=== PATIENT | female | born 1970 | race African-American/Black ===

== ENCOUNTER → 2018-07-18 14:37 | Outpatient (CLI) | payer OTHER, SELFPAY ==
--- NOTE | 2018-07-18 14:44 | BI_ITS ---
MAMMOGRAPHY - BILATERAL SCREENING REASON FOR EXAM: Female, 47 years old. Routine annual screening examination. PERTINENT HISTORY: Non-contributory. TECHNIQUE: Digital bilateral breast nubia (3D mammographic acquisition) in the CC and MLO projections. 2-D mediolateral oblique (MLO) and craniocaudad (CC) views of both breasts were obtained. CAD: Full Field Digital Mammography with Computer Added Detection was performed. COMPARISON: Comparison is made with prior study dated July 14, 2017 and July 10, 2016. FINDINGS: Breast Composition: The breasts are almost entirely fatty. There are no dominant masses or suspicious calcifications. Stable 8 mm well-defined nodule in the anterior superior lateral portion of the left breast. Stable appearance of the bilateral axillary lymph nodes. No other significant abnormalities are identified. There has been no significant change since the prior study. BI/SCREENING MAMM (CAD), BILAT IMPRESSION: Stable bilateral screening mammogram. Yearly follow-up mammogram recommended. (A) ASSESSMENT CATEGORY: BIRADS Category 2: Benign. A letter regarding these results will be sent to the patient by the facility within 30 days. Approximately 10% of breast cancers are not detected by mammography. A normal mammogram should not delay biopsy of a clinically suspicious abnormality. [id number] Electronically Signed: Jeb Simon MD at 13:24 EDT Tel [phone], Service support ,
== END ==
PROVIDERS: Family Provider Family Medicine; PCP Family Medicine; Referring Provider Obstetrics & Gynecology; Visit Provider Obstetrics & Gynecology
DX: Z12.31 Encounter for screening mammogram for malignant neoplasm of breast (principal)
CPT/HCPCS: 77063; 77067

== ENCOUNTER → 2019-07-25 | Outpatient (CLI) | payer OTHER, SELFPAY ==
--- NOTE | 2019-07-25 13:10 | BI_ITS ---
MAMMOGRAPHY - BILATERAL SCREENING REASON FOR EXAM: Female, 48 years old. Routine annual screening examination. PERTINENT HISTORY: Non-contributory. TECHNIQUE: Digital bilateral breast man (3D mammographic acquisition) in the CC and MLO projections. 2-D mediolateral oblique (MLO) and craniocaudad (CC) views of both breasts were obtained. CAD: Full Field Digital Mammography with Computer Added Detection was performed. COMPARISON: Comparison is made with prior study dated July 18, 2018 and July 14, 2017. FINDINGS: Breast Composition: The breasts are almost entirely fatty. There are no dominant masses or suspicious calcifications. Stable 8 mm well-defined nodular density with focal calcification in the anterior superior lateral aspect of the left breast. Stable benign-appearing bilateral axillary lymph nodes. No other significant abnormalities are identified. There has been no significant change since the prior study. BI/SCREEN MAMM (CAD) W/MAN BILAT IMPRESSION: Stable bilateral screening mammogram. Yearly follow-up mammogram recommended. (A) ASSESSMENT CATEGORY: BIRADS Category 2: Benign. A letter regarding these results will be sent to the patient by the facility within 30 days. Approximately 10% of breast cancers are not detected by mammography. A normal mammogram should not delay biopsy of a clinically suspicious abnormality. [id number] Electronically Signed: Jeb Simon, at 14:23 EDT , Service support ,
== END | disposition home or self-care (01) ==
LOC: OPBI 13:08
PROVIDERS: Family Provider Family Medicine; PCP Family Medicine; Referring Provider Obstetrics & Gynecology; Visit Provider Obstetrics & Gynecology
DX: Z12.31 Encounter for screening mammogram for malignant neoplasm of breast (principal)
CPT/HCPCS: 77063; 77067

== ENCOUNTER 2019-12-23 16:50 | Emergency (ER) | payer OTHER, SELFPAY ==
[2019-12-23 16:51] VITALS: BP 199/99; PULSE 70; RESP 16; TEMP 36.4; O2SAT 100; BMI 41.3
--- NOTE | 2019-12-23 17:12 | RAD_ITS ---
STUDY: X-RAY - LEFT FOOT CLINICAL: Female, 49 years old. Left 5th digit injury tonight. TECHNIQUE: 3 view(s) of the foot. COMPARISON: None. FINDINGS: There is a plantar calcaneal spur. There are degenerative changes of the midfoot. Normal metatarsi. There is a bony density along the medial aspect of the tuft of the distal phalanx that may be secondary to a prior injury. Normal second through fifth metatarsophalangeal joints. There is a fracture through the distal diaphysis of the fifth proximal phalanx. No intra-articular involvement is visualized. There is overlying soft tissue swelling. There is a The soft tissue structures are unremarkable. RAD/Foot min 3 Views IMPRESSION: Fifth proximal phalanx fracture. Degenerative changes. Electronically Signed: Lexis Betancourt MD at 17:46 EDT Tel , Service support ,
--- NOTE | 2019-12-23 17:13 | ED.VIS.LOWEX ---
History of Present Illness Chief Complaint: Lower Extremity Injury Informant: Patient Occurred: Today Mechanism/Context: Injury Context: Sudden Onset - Accidentally caught her left small toe on the leg of her child's highchair as she was walking by it Timing: Continuous Quality of Pain: Aching Location: Left small toe Current Severity: Moderate Maximum Severity: Severe Worsened by: Walking, moving, palpation Relieved by: Leaving alone and remaining still Associated Symptoms: Negative for: Parasthesia, Weakness, Loss of Funtion Past Medical History - Allergies and Home Meds Allergies/Adverse Reactions: Allergies codeine Allergy (Verified 12/23/19 16:52) Hives shellfish derived Allergy (Verified 12/23/19 16:52) Hives Primary Care Physician: Klever Candelaria MD [Primary Care Provider] - Past Medical History: None Surgical History: no surgical history Lives: With Family Smoking Status: Never smoker Review of Systems General: Denies: Chills, Fever, Sweats Musculoskeletal: Reports: Extremity Pain. Denies: Swelling Skin: Denies: Rash, Wounds Neurological: Denies: Headache, Weakness, Numbness Physical Exam Vital Signs/Narrative: Vital Signs Temp Pulse Resp BP Pulse Ox 12/23/19 16:51 97.5 F L 70 16 199/99 H 100 Inital Vital Signs reviewed: Yes - Extremity Exam Left Foot: Deformity - Left fifth digit is mildly in a valgus deformity. Skin intact., Limited ROM - Due to pain, fifth toe only. The fifth toe is tender, the metatarsal and midfoot are not and the other toes are unaffected/nontender. General: Well nourished, Well developed, - - nad Skin: Normal color, No rash, No Trauma Neurological: Alert, Oriented x3, Cranial nerves II-XII grossly intact, Normal Strength, Normal Sensation Psychological: Normal affect, Normal Mood ED Disposition - Plan for ED Patient: Disposition: Home or Assisted Living Diagnosis: Closed fracture of proximal phalanx of toe of left foot Instructions: ED Fx Toe Closed Prescriptions: Hydrocodone Bitart/Apap 5-325 [[place] 5MG-325MG] 1 tab PO Q4H PRN PRN 2 Days #10 tab PRN Reason: Pain Prescription Printed Referrals: Klever Candelaria MD [Primary Care Provider] - Baylee Patino DO [STAFF PHYSICIAN] - 10-14 Days if not better
== END 2019-12-23 18:21 | disposition home or self-care (01) ==
PROVIDERS: Emergency Provider Emergency Medicine; PCP Family Medicine
DX: S92.512A Displaced fracture of proximal phalanx of left lesser toe(s), initial encounter for closed fracture (principal); W22.03XA Walked into furniture, initial encounter; Y93.9 Activity, unspecified; Y92.9 Unspecified place or not applicable; Y99.9 Unspecified external cause status
CPT/HCPCS: 73630; 99283

== ENCOUNTER 2020-12-06 20:26 | Emergency (ER) | payer OTHER, SELFPAY ==
[2020-12-06 20:28] VITALS: BP 180/108; PULSE 75; RESP 16; TEMP 36.4; O2SAT 97; BMI 39.4
--- NOTE | 2020-12-06 20:54 | ED.VIS.GEN ---
History of Present Illness Chief Complaint: Cold Sx Informant: Patient Onset: Weeks - Onset 2 weeks ago Context: Sudden Onset Timing: Continuous Quality: Upper respiratory symptoms, runny nose, cough, aches etc. Location: Upper respiratory Current Severity: Mild Maximum Severity: Moderate Worsened by: Nothing specific Relieved by: Nothing Associated Symptoms: Upper respiratory symptoms Narrative: Patient is a 50-year-old woman who presents with respiratory symptoms started 2 weeks ago. She reports headache, nasal congestion, rhinorrhea, cough, shortness of breath, myalgias and subjective fever. She has younger children at home that are all ill. She was seen at urgent care. She had a negative Covid and a negative influenza swab 2 weeks ago. She was not placed on antibiotics. She presents today because she has gotten no better. She denies double vision, blurred vision or photophobia. Denies neck pain or neck stiffness. She denies nausea, vomiting diarrhea. She denies dysuria, frequency, urgency or hematuria. She denies rash. Prior similar symptoms: Yes Recent Illness/Hospitalization: Yes - Past Medical History (1) History of hypertension Status: Acute (2) History of gastroesophageal reflux (GERD) Status: Acute Past Medical History - Allergies and Home Meds Allergies/Adverse Reactions: Allergies codeine Allergy (Verified 12/06/20 20:28) Hives shellfish derived Allergy (Verified 12/06/20 20:28) Hives Primary Care Physician: Klever Candelaria MD [Primary Care Provider] - Surgical History: no surgical history Lives: With Family Smoking Status: Never smoker Alcohol: None Drugs: None Review of Systems General: Reports: Fever, Malaise, Subjective. Denies: Chills, Sweats, Weight loss Eyes: Denies: Visual changes - bilaterally, Blurred Vision - bilaterally ENT: Reports: Rhinorrhea. Denies: Bilateral ear pain, Sore throat Cardiovascular: Denies: Chest pain, Palpitations Respiratory: Reports: Cough. Denies: Dyspnea, Sputum, Dyspnea on exertion, Orthopnea, Paroxysmal nocturnal dyspnea Gastrointestinal: Denies: Abdominal pain, Nausea, Vomiting, Diarrhea, Melena, Hematochezia Genitourinary: Denies: Dysuria, Hematuria, Frequency Musculoskeletal: Reports: Myalgias, Arthralgias. Denies: Neck pain, Back pain, Swelling, Extremity Pain, -, - Skin: Denies: Rash, Wounds Neurological: Reports: Headache. Denies: Weakness Psych: Denies: Depression, Anxiety Endocrine: Denies: Polyuria, Polydipsia Hematologic: Denies: Easy bruising Physical Exam Vital Signs/Narrative: Vital Signs Temp Pulse Resp BP Pulse Ox 12/06/20 20:28 97.5 F L 75 16 180/108 H 97 Inital Vital Signs reviewed: Yes General: Well nourished, Well developed, Obese, No Acute Distress Head: Normocephalic, Atraumatic Eyes: Perrl, EOMI. Negative for: Pale conjunctiva, Scleral icterus ENT: Moist mucous membranes, No rhinorrhea Neck: Supple, Nontender, No lymphadenopathy, No JVD Cardiovascular: Regular rate, Regular rhythm, No murmurs, Normal S1, Normal S2 Respiratory: No distress, CTA bilaterally, Chest nontender Abdomen: Soft, Nontender, Nondistended, Normal bowel sounds Rectal: Deferred Back: Nontender Extremities: Nontender, No edema Skin: Normal color, No rash, No Trauma. Negative for: Cyanosis, Diaphoresis, Jaundice Neurological: Alert, Oriented x3, Cranial nerves II-XII grossly intact, Normal Strength, Normal Sensation Psychological: Normal affect, Normal Mood Diagnostic/Tx/Re-eval Chest X-Ray - ED: 1 View, Read by ED Physician, Unchanged, Normal, Heart, Lungs, Mediastinum, No Acute Disease, - - X-ray was interpreted by me at 2140. 12/06/20 21:10 Chest 1 View (Portable) [RAD] Stat Laboratory Results 12/06/20 12/06/20 21:00 21:00 WBC 7.1 RBC 4.26 Hgb 13.1 Hct 41.4 MCV 97.2 MCH 30.8 MCHC 31.6 L RDW Std Deviation 46.6 H RDW Coeff of Kristi 13.1 Plt Count 314 MPV 9.8 Immature Gran % (Auto) 0.100 Neut % (Auto) 28.8 L Lymph % (Auto) 55.6 H [place] % (Auto) 6.0 Eos % (Auto) 8.7 H Baso % (Auto) 0.8 Absolute Neuts (auto) 2.0 Absolute Lymphs (auto) 3.95 Nucleated RBC % 0 Sodium 141 Potassium 3.9 Chloride 107 Carbon Dioxide 29.0 Anion Gap 5 BUN 8 Creatinine 0.65 Estim Creat Clear Calc 87.43 Est GFR (MDRD) Af Amer 123 Est GFR (MDRD) Non-Af 102 BUN/Creatinine Ratio 12.3 Glucose 91 Calcium 8.9 Total Bilirubin 0.30 AST 16 ALT 20 Alkaline Phosphatase 85 Total Protein 7.4 Albumin 3.7 Globulin 3.7 Albumin/Globulin Ratio 1.0 Work is unremarkable. Covid test is pending and is a send out test. Treatment is symptomatic. - Medical Decision Making Presents with upper respiratory symptoms. Suspect viral illness. Covid test was ordered. Chest x-ray was ordered to rule out pneumonia. CBC was obtained to assess white count and H&H. Because patient had symptoms for [address] on doxycycline for atypical coverage. ED Disposition - Plan for ED Patient: Disposition: Home or Assisted Living Diagnosis: Upper respiratory infection with cough and congestion Instructions: ED Upper Resp Infec Abx Tx, Coronavirus Disease 2019 (COVID-19): Overview Prescriptions: Doxycycline 100 mg PO BID #14 cap Transmission Status: Pending to [facility] Referrals: Klever Candelaria MD [Primary Care Provider] - 3-5 Days if not improving Additional Instructions: You will receive your Covid test once the results are available and may take 24 to 48 hours. Because you have had symptoms for 2 weeks you were placed on antibiotic to cover for atypical organisms.
--- NOTE | 2020-12-06 21:10 | RAD_ITS ---
INDICATION: cough EXAMINATION/TECHNIQUE: X-RAY - XR Chest 1 View COMPARISON: 02/16/2012. FINDINGS: The lungs are clear. Bilateral hilar adenopathy. No pleural effusion or pneumothorax. The osseous structures are unremarkable. RAD/Chest 1 View (Portable) IMPRESSION: Bilateral hilar adenopathy. No other acute findings. Electronically Signed: Yonatan Carter MD at 21:38 EST Tel , Service support ,
[2020-12-06 21:24] VITALS: BP 183/104; PULSE 65; RESP 20; O2SAT 99
[2020-12-06 21:25] LABS: Absolute Lymphocyte Count 3.95 X10^3/uL (0.83-4.51); Basophil# 0.06 X10^3/uL; Basophil% 0.8 % (0-1); Eosinophil# 0.62 X10^3/uL; Eosinophils% 8.7 % (0-5); Hematocrit 41.4 % (37-47); Hemoglobin 13.1 g/dL (12.0-15.0); Lymphocyte # 3.95 X10^3/ul (4.0); Lymphocyte % 55.6 % (19-41); Mean Corp Hgb Conc 31.6 g/dL (32-36); Mean Corpuscular Hgb 30.8 pg (27.0-32.0); Mean Corpuscular Volume 97.2 fL (81-99); Mean Platelet Vol. 9.8 fl (6.2-12.0); Monocyte# 0.43 X10^3/uL; NRBC Flagged by Analyzer 0 % (0-5); Neutrophil # 2.04 X10^3/uL (2.7-7.7); Neutrophil % 28.8 % (47-70); Platelet Count 314 K/mm3 (150-450); RBC Distribution Width CV 13.1 % (11.6-14.6); RBC Distribution Width SD 46.6 fl (35.1-43.9); Red Blood Count 4.26 M/mm3 (4.2-5.4); White Blood Count 7.1 K/mm3 (4.4-11.0)
[2020-12-06 21:28] VITALS: O2SAT 99
[2020-12-06 21:53] LABS: AST(SGOT) 16 U/L (15-37); Alanine Aminotransfer ALT/SGPT 20 U/L (13-56); Albumin, Serum 3.7 g/dL (3.2-5.0); Alkaline Phosphatase 85 U/L (45-117); Anion Gap 5 (5-15); BUN 8 mg/dL (7-18); BUN/Creat Ratio 12.3 RATIO (10-20); Calcium,Total 8.9 mg/dL (8.5-10.1); Chloride 107 mmol/L (98-107); Creatinine, Serum 0.65 mg/dL (0.55-1.02); EST Glomerular Filtration Rate 102 mL/min (>60); Est Glom Filt Rate - Afr Amer 123 mL/min (>60); Estimated Creatinine Clearance 87.43 ml/min; Globulin 3.7 g/dL (2.2-4.2); Glucose 91 mg/dL (74-106); Potassium 3.9 mmol/L (3.5-5.1); Protein, Total 7.4 g/dL (6.4-8.2); Sodium Level 141 mmol/L (136-145)
[2020-12-06 22:12] VITALS: BP 187/101
[2020-12-06] MEDS: Doxycycline 100 MG CAPSULE PO (22:13)
== END 2020-12-06 22:13 | disposition home or self-care (01) ==
PROVIDERS: Emergency Provider Emergency Medicine; PCP Family Medicine
DX: J06.9 Acute upper respiratory infection, unspecified (principal); Z20.822 Contact with and (suspected) exposure to COVID-19; I10 Essential (primary) hypertension; K21.9 Gastro-esophageal reflux disease without esophagitis; E66.9 Obesity, unspecified
CPT/HCPCS: 71045; 80053; 83605; 85025; 87040; 87635; 99285; A4216; U0002; U0003

== ENCOUNTER 2021-05-14 16:51 | Observation (INO) | payer OTHER, SELFPAY ==
[2021-05-14 16:51] VITALS: BP 190/105; PULSE 74; RESP 17; TEMP 37; O2SAT 100; BMI 43.4
--- NOTE | 2021-05-14 17:06 | CT_ITS ---
HISTORY: Tingling TECHNIQUE: Multiple axial images were obtained of the brain without intravenous contrast. A radiation dose optimization technique was used for this scan. IV Contrast dosage and agent: None. COMPARISON: None FINDINGS: # of images incl. paperwork: 230 PARANASAL SINUSES AND MASTOID AIR CELLS: Ethmoid and sphenoid sinus mucoperiosteal disease. INTRACRANIAL HEMORRHAGE: None. BRAIN PARENCHYMA: No CT evidence of acute territorial infarction. Lacunar infarction left basal ganglia. No intracranial masses. There is preservation of the ghosh/white matter interface. Posterior fossa structures are unremarkable. CSF SPACES: Appropriate for age. There is no hydrocephalus. MASS EFFECT: None. CALVARIUM: Intact. CT/Brain/Head without Contrast IMPRESSION: No definite acute intracranial findings. Acuity of the lacunar infarction is indeterminate. Individualized dose optimization techniques were used for this CT. at 1744 Reported and signed by: Steve Ulloa MD Electronically Signed: Steve Ulloa MD at 17:43 EDT Tel , Service support ,
--- NOTE | 2021-05-14 17:06 | EKG12_ITS ---
Test Reason : NEURO S/SX Blood Pressure : / mmHG Vent. Rate : 065 BPM Atrial Rate : 065 BPM P-R Int : 190 ms QRS Dur : 080 ms QT Int : 440 ms P-R-T Axes : 024 032 019 degrees QTc Int : 457 ms Normal sinus rhythm Normal ECG Confirmed by BE BOURNE, SHAHZAD ([id number]), managing editor BONI GARCÍA ([id number]) on 05/19/2021 9:23:58 AM Referred By: MARCELA Confirmed By:SHAHZAD LR MD
[2021-05-14 17:27] LABS: Absolute Lymphocyte Count 3.51 X10^3/uL (0.83-4.51); Absolute Neutrophil Count 2.1 X10^3/uL (2.0-7.7); Basophil# 0.05 X10^3/uL; Basophil% 0.8 % (0-1); Eosinophil# 0.48 X10^3/uL; Eosinophils% 7.4 % (0-5); Hematocrit 41.7 % (37-47); Hemoglobin 13.1 g/dL (12.0-15.0); Lymphocyte # 3.51 X10^3/ul (0.83-4.51); Lymphocyte % 54.4 % (19-41); Mean Corp Hgb Conc 31.4 g/dL (32-36); Mean Corpuscular Volume 95.4 fL (81-99); Mean Platelet Vol. 9.6 fl (6.2-12.0); Monocyte# 0.33 X10^3/uL; Monocyte% 5.1 % (0-10); NRBC Flagged by Analyzer 0 % (0-5); Neutrophil # 2.06 X10^3/uL (2.7-7.7); Platelet Count 320 K/mm3 (150-450); RBC Distribution Width CV 12.8 % (11.6-14.6); RBC Distribution Width SD 45.1 fl (35.1-43.9); Red Blood Count 4.37 M/mm3 (4.2-5.4); White Blood Count 6.5 K/mm3 (4.4-11.0)
[2021-05-14 17:43] LABS: AST(SGOT) 13 U/L (15-37); Alanine Aminotransfer ALT/SGPT 24 U/L (13-56); Albumin, Serum 3.7 g/dL (3.2-5.0); Alkaline Phosphatase 80 U/L (45-117); Anion Gap 3 (5-15); BUN 12 mg/dL (7-18); BUN/Creat Ratio 17.7 RATIO (10-20); Calcium,Total 8.8 mg/dL (8.5-10.1); Chloride 104 mmol/L (98-107); Creatinine, Serum 0.68 mg/dL (0.55-1.02); EST Glomerular Filtration Rate 97 mL/min (>60); Est Glom Filt Rate - Afr Amer 117 mL/min (>60); Estimated Creatinine Clearance 80.06 ml/min; Globulin 3.8 g/dL (2.2-4.2); Glucose 85 mg/dL (74-106); Potassium 3.9 mmol/L (3.5-5.1); Protein, Total 7.5 g/dL (6.4-8.2); Sodium Level 138 mmol/L (136-145); Troponin-I HS 33 pg/mL (3.0-54.0)
[2021-05-14 18:04] VITALS: BP 173/100; PULSE 67; RESP 18; O2SAT 97
[2021-05-14 18:25] LABS: Bacteria 0 SEEN /hpf (None Seen); Mucous, Urine 0 SEEN /hpf (<or=2+); Red Blood Cells-Urine 0 SEEN /hpf (0-5)
[2021-05-14 18:39] LABS: Color, Urine Yellow (Yellow); Glucose, Dipstick Normal (Normal); Ketone-Dipstick Negative (Negative); Leukocyte Esterase-Dipstick Negative /ul (Negative); Nitrite-Dipstick Negative (Negative); Occult Blood-Urine Negative /ul (Negative); Protein-Dipstick Negative (Negative); Urine Bilirubin Dipstick Negative (Negative); Urine Clarity Clear (Clear); Urine Urobilinogen Normal (Normal); Urine pH 6.5 (5.0 - 8.0)
--- NOTE | 2021-05-14 18:55 | EX.ED.DYSGE1 ---
HPI History of Present Illness Chief Complaint: Numb/Ting Informant: patient Onset/Context/Timing Onset: Today Context: Sudden Onset Timing: Continuous Quality: Prickling sensation Location: Right hand and right face Worsened by: Washing hands Relieved by: Nothing Narrative Narrative: Patient presents with numbness and tingling to the right side of her face and right hand that occurred today. Patient states she woke up with the symptoms at approximately 5 AM today. Patient states the have been persistent throughout the day. Patient states she went to bed last night approximately 10 PM and did not have any symptoms. Patient denies any weakness. Patient denies any difficulty swallowing or difficulty talking. Patient describes her sensation as a prickling sensation in her right hand and right face. Patient states nothing makes it better. Patient states it seemed to be worse whenever she washed her hands. [facility] Medical History Hyperlipemia Hypertension Iron deficiency Umbilical hernia without obstruction and without gangrene Home Medications atorvastatin 20 mg PO DAILY 12/06/20 [History Last Taken Unknown] estradiol 1 tab PO DAILY 12/06/20 [History Last Taken Unknown] hydrochlorothiazide 12.5 mg PO DAILY 05/14/21 [History Last Taken Unknown] lisinopril 40 mg PO DAILY 05/14/21 [History Last Taken Unknown] metoprolol tartrate 25 mg PO BID 05/14/21 [History Last Taken Unknown] omeprazole 20 mg PO DAILY 05/14/21 [History Last Taken Unknown] Allergy/AdvReac Type Severity Reaction Status Date / Time codeine Allergy Hives Verified 05/14/21 16:54 Surgical History History of hysterectomy Hx of appendectomy Social History Smoking Status: Never smoker ROS ROS ED Constitutional Constitutional ED: Denies chills or fever(s) Eyes Eyes: Denies blurry vision or change in vision ENT ENT ED: Denies rhinorrhea or sore throat Cardiovascular Cardiovascular: Denies chest pain or palpitations Respiratory/Chest Respiratory/Chest: Denies cough or dyspnea Gastrointestinal Gastrointestinal: Denies nausea or vomiting Genitourinary Genitourinary ED: Denies dysuria or hematuria Musculoskeletal Musculoskeletal: Denies back pain or neck pain Integumentary Denies abscess or rash Neurologic Neurologic: Reports paresthesias RUE (Right hand); Denies headache(s) or weakness Allergic/Immunologic Allergic/Immunologic ED: Denies mouth swelling or urticaria EXAM Physical Exam Const Vital Signs: 05/14/21 16:51 05/14/21 18:04 05/14/21 19:35 Temperature 98.6 F Temperature Source Oral Pulse Rate 74 67 66 Respiratory Rate 17 18 15 Blood Pressure 190/105 H 173/100 H 189/104 H Blood Pressure Mean 133 124 132 Pulse Ox 100 97 100 Oxygen Delivery Method Room Air Room Air Room Air Positive well nourished and well developed General Appearance ED: well developed HEENT Reports moist mucous membranes Neck supple and no JVD Resp normal respiratory effort and clear to auscultation bilaterally Cardio regular rate, regular rhythm and no murmurs GI normal to inspection, nondistended, normoactive bowel sounds and non-tender Palpation: soft Extremity normal to inspection General Extremety ED: Negative for edema or tenderness General Extremity: Negative for edema Neuro oriented x3, CN's II-XII intact bilaterally and no sensory deficits noted Sensorium / Orientation: alert Motor Exam: strength 5/5 throughout Psych mental status grossly normal Skin no rashes or lesions noted MDM MDM MDM Narrative Medical decision making narrative: NIH stroke scale is 0. EKG was obtained. On my interpretation, it showed a normal sinus rhythm with a rate of 65. FL interval, QRS interval, and QTc intervals were all normal. [place] was normal. There are no acute ST or T wave changes. CT scan of the brain was obtained. There is a lacunar infarct in the left basal ganglia of questionable acuity. CBC and comprehensive metabolic profile was within normal limits. Urinalysis was ordered and is normal. Patient states she is still having some subjective paresthesias on her right face and right hand. I recommended admission for further evaluation of the lacunar infarct. Patient was given a dose of labetalol for her blood pressure. Lab Data Attestation: I reviewed the patient's lab results. Labs: Laboratory Results - last 24 hr 05/14/21 05/14/21 05/14/21 17:15 17:15 18:15 WBC 6.5 RBC 4.37 Hgb 13.1 Hct 41.7 MCV 95.4 MCH 30.0 MCHC 31.4 L RDW Std Deviation 45.1 H RDW Coeff of Kristi 12.8 Plt Count 320 MPV 9.6 Immature Gran % (Auto) 0.300 Neut % (Auto) 32.0 L Lymph % (Auto) 54.4 H [place] % (Auto) 5.1 Eos % (Auto) 7.4 H Baso % (Auto) 0.8 Absolute Neuts (auto) 2.1 Absolute Lymphs (auto) 3.51 Nucleated RBC % 0 Sodium 138 Potassium 3.9 Chloride 104 Carbon Dioxide 31.0 Anion Gap 3 L BUN 12 Creatinine 0.68 Estim Creat Clear Calc 80.06 Est GFR (MDRD) Af Amer 117 Est GFR (MDRD) Non-Af 97 BUN/Creatinine Ratio 17.7 Glucose 85 Calcium 8.8 Total Bilirubin 0.30 AST 13 L ALT 24 Alkaline Phosphatase 80 Troponin I High Sens 33 Total Protein 7.5 Albumin 3.7 Globulin 3.8 Albumin/Globulin Ratio 1.0 Urine Color Yellow Urine Clarity Clear Urine pH 6.5 Ur Specific [place] 1.010 Urine Protein Negative Urine Glucose (UA) Normal Urine Ketones Negative Urine Occult Blood Negative Urine Nitrite Negative Urine Bilirubin Negative Urine Urobilinogen Normal Ur Leukocyte Esterase Negative Urine RBC 0 SEEN Urine WBC 0-5 SEEN Ur Squamous Epith Cells 5-10 SEEN Urine Bacteria 0 SEEN Urine Mucus 0 SEEN Radiography Diagnostic Testing: Radiology Impression Brain CT 05/14/21 17:06 IMPRESSION: No definite acute intracranial findings. Acuity of the lacunar infarction is indeterminate. Individualized dose optimization techniques were used for this CT. at 1744 Reported and signed by: Steve Ulloa MD Electronically Signed: Steve Ulloa MD at 17:43 EDT Tel , Service support , EKG Initial EKG: Attestation: I personally reviewed and interpreted this EKG as follows: Interpretation: Sinus Rhythm (65) and No Acute Injury Pattern Discharge Plan Triage Chief Complaint: Numb/Ting ED Provider: Nima Puga Dx/Rx/DC Orders Prescriptions: No Action atorvastatin 20 MG tablet 20 mg PO DAILY RF: 0 estradiol 1 MG tablet 1 tab PO DAILY RF: 0 hydrochlorothiazide 12.5 mg capsule 12.5 mg PO DAILY RF: 0 omeprazole 20 mg capsule,delayed release(DR/EC) 20 mg PO DAILY RF: 0 lisinopril 40 mg tablet 40 mg PO DAILY RF: 0 metoprolol tartrate 25 mg tablet 25 mg PO BID RF: 0 Primary Care Provider: Klever Candelaria
[2021-05-14 19:14] LABS: Squamous Epithelial Cells - UA 5-10 SEEN /hpf (5-10); White Blood Cells 0-5 SEEN /hpf (0-5)
[2021-05-14 19:35] VITALS: BP 189/104; PULSE 66; RESP 15; O2SAT 100
--- NOTE | 2021-05-14 20:06 | CT_ITS ---
HISTORY: Stroke TECHNIQUE: Routine carotid CT angiogram protocol was performed without and with IV contrast. In addition, images were obtained of the [place]. [place] criteria using the distal ICAs for comparison were used for evaluation of stenoses. 3D reconstructions were reviewed. A radiation dose optimization technique was used for this scan. IV Contrast dosage and agent: 100mL [id number] COMPARISON: Noncontrast head CT same date FINDINGS: --NECK: AORTIC ARCH AND BRANCHES: Unremarkable, cervical vessel origins patent. RIGHT CCA: No occlusion, significant stenosis or dissection. RIGHT ICA: No occlusion, significant stenosis or dissection. LEFT CCA: No occlusion, significant stenosis or dissection. LEFT ICA: No occlusion, significant stenosis or dissection. RIGHT VERTEBRAL ARTERY: No occlusion, significant stenosis or dissection. LEFT VERTEBRAL ARTERY: No occlusion, significant stenosis or dissection. NECK SOFT TISSUES: Unremarkable. LUNG APICES: Clear. BONES: No acute abnormality. --HEAD: --Anterior circulation: ICAs: No significant stenosis at the intracranial/visualized segments. ACAs: No significant stenosis at the visualized segments. Right A1 segment and absent. ACOM: Present. MCAs: No significant stenosis at the visualized segments. --Posterior circulation: supervisor wet end: No significant stenosis at the visualized segments. BASILAR ARTERY: No significant stenosis. VERTEBRAL ARTERIES: No significant stenosis at the intradural/visualized segments. No evidence of intracranial aneurysm or vascular malformation. CT/CTA Head AND Neck W/ Contrast IMPRESSION: No significant major vesselocclusive disease in the head or neck. Individualized dose optimization techniques were used for this CT. at 2120 Reported and signed by: Steve Ulloa MD Electronically Signed: Steve Ulloa MD at 21:19 EDT Tel , Service support ,
--- NOTE | 2021-05-14 20:10 | PCM.HP.STD ---
[facility] - General General Date of Admission: 05/14/21 Date of Service: 05/14/21 Chief Complaint: numbness HPI Narrative GASPER VARELA, is a 50 F with a significant history of hypertension and hyperlipidemia who presents at the emergency department with numbness of her right hand and her right face that has been persistent. Patient last known well was that last time she went to sleep which was about 10pm of the day before presentation. She woke up at about 5 AM on the day of presentation with above symptoms and the symptoms persisted. She denies any focal weakness, vision or speech changes. [facility] Medical History Hyperlipemia Hypertension Iron deficiency Umbilical hernia without obstruction and without gangrene no medical history Home Medications atorvastatin 20 mg PO DAILY 12/06/20 [History Last Taken Unknown] estradiol 1 tab PO DAILY 12/06/20 [History Last Taken Unknown] hydrochlorothiazide 12.5 mg PO DAILY 05/14/21 [History Last Taken Unknown] lisinopril 40 mg PO DAILY 05/14/21 [History Last Taken Unknown] metoprolol tartrate 25 mg PO BID 05/14/21 [History Last Taken Unknown] omeprazole 20 mg PO DAILY 05/14/21 [History Last Taken Unknown] Allergy/AdvReac Type Severity Reaction Status Date / Time codeine Allergy Hives Verified 05/14/21 16:54 Family History Other Diabetes Hypertension Surgical History History of hysterectomy Hx of appendectomy Social History (Updated 05/15/21 @ 00:44 by Mirian Iglesias) household members: spouse and children housing: house pets and animals: Yes (dog) current gender identity: female Smoking Status: Never smoker ROS ROS Narrative Constitutional: Denies anorexia and change in weight Eyes: Denies blurry vision, change in eye color, change in vision, discharge from eye(s), double vision, erythema, eye pain, loss of vision or other HEENT: Denies abnormal hearing, dysphagia, ear pain, epistaxis, headache(s), hearing loss, nasal congestion, nasal discharge, post nasal drip, sinus pressure, sore throat or other Cardiovascular: Denies chest pain. Denies dyspnea on exertion, orthopnea and paroxysmal nocturnal dyspnea Respiratory/Chest: Denies cough, excessive phlegm production, shortness of breath with exertion and wheezing Gastrointestinal: Denies abdominal pain, coffee ground emesis, constipation, diarrhea, dyspepsia, hematemesis, hematochezia, loose stools, melena, nausea, vomiting or other Genitourinary: Denies burning urination, difficulty urinating, dysuria, hematuria, nocturia, urinary frequency, urinary hesitancy, urinary incontinence, urinary urgency or other Musculoskeletal: Denies arthralgias, back pain, joint pain, joint stiffness, joint swelling, myalgias, neck pain or other Neurologic: Reports numbness. Denies abnormal gait, abnormal speech, confusion, disequilibrium, dizziness, focal weakness, headache(s), paresthesias, seizure-like activity, seizures, syncope, tingling, tremor(s) or other Psychiatric: Denies anxiety, depression, homicidal ideation, suicidal ideation or other Endocrinology: Denies change in body appearance, cold intolerance, excessive sweating, heat intolerance, polydipsia, polyuria or other Hematologic/Lymphatic: Denies anemia, easy bleeding, easy bruising, lymphadenopathy or other Integumentary: Denies ulcer on buttocks. Allergic/Immunologic: Denies rhinitis, hives, eczema, asthma or other Vital Signs Vital Signs Vital Signs: 05/14/21 16:51 05/14/21 18:04 05/14/21 19:35 Temperature 98.6 F Temperature Source Oral Pulse Rate 74 67 66 Respiratory Rate 17 18 15 Blood Pressure 190/105 H 173/100 H 189/104 H Blood Pressure Mean 133 124 132 Pulse Ox 100 97 100 Oxygen Delivery Method Room Air Room Air Room Air Weight Weight: 111.1 kg Body Mass Index (BMI) 43.4 Physical Exam Narrative Physical exam: General: Well-nourished, well-developed, no acute distress Head: Normocephalic, atraumatic, no tenderness Eyes: PERRLA, EOMI ENT, no trauma, moist mucous membranes, no rhinorrhea Neck: Nontender, full range of motion, no spinal tenderness, deformities, step-off CVS: Regular rate and rhythm Respiratory no acute distress, clear to auscultation bilaterally, chest wall nontender, no wheezing Abdomen: Soft, nontender, nondistended, normal bowel sounds, no masses : Deferred Back: Nontender, no CVA tenderness, no midline spinal tenderness, deformities, step-offs Extremities: Nontender full range of motion, no trauma Skin: Normal color, no trauma, abrasions Neuro: Alert, oriented, cranial nerves II through XII grossly intact. No dysmetria. Deep tendon reflexes not hyperreflexia throughout. Psychiatry: Normal mood. Normal affect. Not depressed. Not anxious. Results Lab / Micro Data Result Diagrams: 05/14/21 17:15 05/14/21 17:15 Labs: Laboratory Results - last 24 hr 05/14/21 17:15: WBC 6.5, RBC 4.37, Hgb 13.1, Hct 41.7, MCV 95.4, MCH 30.0, MCHC 31.4 L, RDW Std Deviation 45.1 H, RDW Coeff of Kristi 12.8, Plt Count 320, MPV 9.6, Immature Gran % (Auto) 0.300, Neut % (Auto) 32.0 L, Lymph % (Auto) 54.4 H, [place] % (Auto) 5.1, Eos % (Auto) 7.4 H, Baso % (Auto) 0.8, Absolute Neuts (auto) 2.1, Absolute Lymphs (auto) 3.51, Nucleated RBC % 0 05/14/21 17:15: Sodium 138, Potassium 3.9, Chloride 104, Carbon Dioxide 31.0, Anion Gap 3 L, BUN 12, Creatinine 0.68, Estim Creat Clear Calc 80.06, Est GFR (MDRD) Af Amer 117, Est GFR (MDRD) Non-Af 97, BUN/Creatinine Ratio 17.7, Glucose 85, Calcium 8.8, Total Bilirubin 0.30, AST 13 L, ALT 24, Alkaline Phosphatase 80, Troponin I High Sens 33, Total Protein 7.5, Albumin 3.7, Globulin 3.8, Albumin/Globulin Ratio 1.0 05/14/21 18:15: Urine Color Yellow, Urine Clarity Clear, Urine pH 6.5, Ur Specific [place] 1.010, Urine Protein Negative, Urine Glucose (UA) Normal, Urine Ketones Negative, Urine Occult Blood Negative, Urine Nitrite Negative, Urine Bilirubin Negative, Urine Urobilinogen Normal, Ur Leukocyte Esterase Negative, Urine RBC 0 SEEN, Urine WBC 0-5 SEEN, Ur Squamous Epith Cells 5-10 SEEN, Urine Bacteria 0 SEEN, Urine Mucus 0 SEEN Radiology Impression Brain CT 05/14/21 17:06 IMPRESSION: No definite acute intracranial findings. Acuity of the lacunar infarction is indeterminate. Individualized dose optimization techniques were used for this CT. at 1744 Reported and signed by: Steve Ulloa MD Electronically Signed: Steve Ulloa MD at 17:43 EDT Tel , Service support , Assessment & Plan Assessment/Plan (1) Acute CVA (cerebrovascular accident): PLAN: Acute CVA Serial NINDS NIH Scale was 0 CT of the head interpreted by radiology as lacunar infarct of the basal ganglia. Actual CT head was independently interpreted and I agree with radiologist interpretation. CTA head and neck ordered at the ED; follow. -Check Hba1c, Lipid level Physical therapy, occupational therapy and speech therapy to work with patient. N.p.o. until bedside swallow eval. Daily baby aspirin ordered. Escalate home dose of Lipitor. Lipid profile and A1c ordered. Permissive hypertension. Control blood pressure with labetalol for systolic blood pressure of more than 220 or diastolic blood pressure of more than 120. MRI of brain ordered Echocardiogram ordered. Hypertension Blood pressure is not within goal. Hold home blood pressure medication for permissive hypertension. Blood pressure management as in acute CVA. DVT prophylaxis SCD ordered. Charges/Coding Multi Select Codes Visit Charges Observation E&M Codin Initial observation care L3
[2021-05-14] MEDS: Labetalol (Prefilled) 20 MG/4 ML 10 MG IV (20:34)
[2021-05-14 22:17] VITALS: BP 186/95; PULSE 74; RESP 15; TEMP 36.6; O2SAT 99
[2021-05-15] VITALS (14 sets, daily range): BP systolic 155–195; BP diastolic 88–105; PULSE 61–85; RESP 16–22; TEMP 36.5–37.3; O2SAT 97–100; BMI 42.0
--- NOTE | 2021-05-15 00:40 | MRI_ITS ---
EXAM: MR HEAD WITHOUT INTRAVENOUS CONTRAST : 1970 CLINICAL INDICATION: CVA TECHNIQUE: Multiplanar and multisequence MR images of the brain were obtained without intravenous contrast. This report was created using [employer] report generation technology. COMPARISON: CT brain May 14, 2021 FINDINGS: BRAIN AND EXTRA-AXIAL SPACES: There is no abnormal diffusion weighted signal intensity to suggest an acute ischemic event. The left basal ganglion lacunar infarcts appear to be chronic. No intra- or extra-axial hemorrhage. No intracranial mass or mass effect. Posterior fossa structures are unremarkable. Ventricles are appropriate for age. No hydrocephalus. Basal cisterns are patent. SELLA: Unremarkable. Normal sella turcica, pituitary gland, infundibular stalk, optic chiasm and hypothalamus. AUDITORY SYSTEM: Unremarkable. The internal auditory canals are patent. BONES/JOINTS: Unremarkable. No discrete lytic or blastic abnormalities. SINUSES: Fluid noted within the right sphenoid sinus. Mucosal thickening noted within the paranasal sinuses. MASTOID AIR CELLS: Unremarkable as visualized. Clear. ORBITS: Unremarkable as visualized. Both globes, extraocular muscles, optic nerves and retrobulbar fat appear unremarkable. VASCULATURE: Unremarkable as visualized. Normal flow voids in the major intracranial circulation. MRI/Brain without Contrast IMPRESSION: 1. No evidence of acute intracranial abnormality. 2. Chronic lacunar infarcts of the left basal ganglia. 3. Paranasal sinusitis. at 1225 Reported and signed by: Cuate Roca MD Electronically Signed: Cuate Roca MD at 12:24 EDT Tel , Service support ,
--- NOTE | 2021-05-15 00:40 | ECHOD_ITS ---
Reason For Study: TIA/CVA Procedure This was a 2D Doppler, Color Flow transthoracic echocardiogram. Exam performed portable in patient room. Left Ventricle Normal left ventricle. The estimated ejection fraction is EF 45-50 %. Right Ventricle Normal right ventricle. Normal systolic function. Atria The left atrium is mildly enlarged. Normal right atrium. Bubble contrast study negative for right to left interatrial shunt. Intact atrial septum. Mitral Valve The mitral valve is structurally normal. No prolapse or stenosis seen. Mild (1+) mitral valve insufficiency. Tricuspid Valve Normal tricuspid valve. No tricuspid valve insufficiency. Aortic Valve Normal aortic valve. Pulmonic Valve The pulmonic valve is not well visualized. Great Vessels Normal aortic root. Pericardium/Pleural No pericardial effusion. Medication Performed a rapid injection of agitated mix of 9 cc saline and 1cc air to assess for atrial septal defect. MMode/2D Measurements & Calculations LVIDd: 5.4 cm IVSd: 0.92 cm Ao root diam: 3.5 cm LVIDs: 4.7 cm LVPWd: 0.98 cm RVDd: 3.0 cm FS: 13.7 % LAV(MOD-bp): 48.5 ml LVAd ap4: 34.3 cm2 LVAd ap2: 39.0 cm2 LAV(MOD-bp) Indexed: 23.3 ml/m2 LVLd ap4: 8.4 cm LVLd ap2: 9.1 cm LAV(MOD-sp2): 38.3 ml EDV(MOD-sp4): 116.5 ml EDV(MOD-sp2): 142.3 ml LAV(MOD-sp4): 55.4 ml EDV(sp4-el): 119.1 ml EDV(sp2-el): 142.4 ml LVAs ap4: 23.3 cm2 LVAs ap2: 23.2 cm2 LVLs ap4: 7.0 cm LVLs ap2: 7.2 cm ESV(MOD-sp4): 63.9 ml ESV(MOD-sp2): 60.9 ml ESV(sp4-el): 65.8 ml ESV(sp2-el): 63.7 ml EF(MOD-sp4): 45.2 % EF(MOD-sp2): 57.2 % EF(sp4-el): 44.8 % SV(MOD-sp4): 52.6 ml SV(MOD-sp2): 81.5 ml SV(sp4-el): 53.3 ml LA A4 area: 19.8 cm2 LA dimension(2D): 4.3 cm RA A4 area: 10.8 cm2 Time Measurements MV dec time: 0.32 sec Doppler Measurements & Calculations MV E max sha: 59.0 cm/sec Lat Peak E' Sha: 6.5 cm/sec Med Peak E' Sha: 5.0 cm/sec MV A max sha: 93.7 cm/sec E/E' lat: 9.1 E/E' med: 11.9 MV E/A: 0.63 Ao V2 max: 129.7 cm/sec LV V1 max: 82.5 cm/sec PA V2 max: 98.0 cm/sec Ao max P.7 mmHg LV V1 max P.7 mmHg TR max sha: 226.1 cm/sec TR max P.5 mmHg ECHO/Echo Complete Interpretation Summary The estimated ejection fraction is EF 45-50 %. Grade # I diastolic Dysfunction Mild MR Ordering Physician: Ethan Sr Referring Physician: CORY JAMES Performed By: Jolanta Hebert, RDCS, RVT
--- NOTE | 2021-05-15 02:19 | PCS.PANDOC ---
PANDEMIC DOCUMENTATION INITIATED: Date: 05/15/21 Time: 00:35
[2021-05-15 06:35] LABS: Cholesterol 201 mg/dL (200); High Density Lipoprotein 49 mg/dL; Triglycerides 110 mg/dL; Very Low Density Lipoprotein 22 mg/dL (5-40)
--- NOTE | 2021-05-15 07:07 | PCS.PANDOC ---
PANDEMIC DOCUMENTATION INITIATED: Date: 05/12/2021 Time: 190
[2021-05-15 08:09] LABS: Hemoglobin A1c 5.4 % (3.8-5.6)
[2021-05-15] MEDS: Estradiol 1 MG Tablet PO (08:22)
[2021-05-15] MEDS: Aspirin 81 MG TAB.CHEW PO (08:22)
[2021-05-15] MEDS: Pantoprazole Sodium 20 MG Tablet PO (08:22)
[2021-05-15] MEDS: Acetaminophen 325 MG Tablet 650 MG PO (08:22)
--- NOTE | 2021-05-15 11:29 | CASEMGMT ---
Pt completed PHQ-9 w/SW, pt scored a 1. No indications of depression based on PHQ-9 assessment at this time. DREA Kyle
--- NOTE | 2021-05-15 12:44 | CHAPLAIN ---
Type of Pastoral Visit _x__ Initial Visit ___ Follow-up Visit ___ On-call Visit ___ General Patient Visit ___ Spiritual Assessment ___ Family Conference ___ Bereavement ___ Rapid Response ___ Code Blue ___ Other (describe below) Pastoral Care Referral From _x__ Patient ___ Family ___ Nurse ___ Physician ___ Welder Assembler ___ Manager Retail Store ___ Other (describe below) Sacrament/Intervention _x__ Active listening ___ Anointing ___ Faith ___ Bereavement ___ Communion ___ Isabella exploration ___ ___ Life review _x__ Prayer ___ Reconciliation ___ Sacrament of Sick _x__ Supportive presence ___ Wedding ___ Other (describe below) Pastoral Comments patient is an acquaintance of this care navigator and was offered support; pt welcomed presence and prayer; spouse also present in room
--- NOTE | 2021-05-15 13:41 | TELEMED_ITS ---
[facility] has confirmed receipt of a request for visit. This document confirms receipt of the order initiating the consult. To find the results of the consultation, please view the patient's reports for the scanned Telemed Consult.
--- NOTE | 2021-05-15 16:56 | PCM.DC ---
Discharge Instructions Diet Discharge Diet: Low fat / Low cholesterol Activity Return to work on:: 05/19/21 Dressing / Incision Call your doctor if you observe: Numbness or Tingling (worsening. one-sided weakness. ) Follow Up Care Test Results: Test results from this visit will be discussed in further detail at your follow-up appointment, if applicable. Discharge Plan Admission Admit Date/Time: 05/14/21 20:10 Primary Reason for Your Visit: numbness Attending Provider: Nima Ramírez Primary Care Provider: Klever Candelaria Discharge Orders/Prescriptions Prescriptions: New atorvastatin 80 mg Tablet 80 mg PO QHS Qty: 30 RF: 0 aspirin 81 mg Tablet,Chewable 81 mg PO DAILY@0800 Qty: 0 RF: 0 carvedilol 6.25 mg tablet 6.25 mg PO BID Qty: 60 RF: 0 Continued estradiol 1 MG tablet 1 tab PO DAILY RF: 0 hydrochlorothiazide 12.5 mg capsule 12.5 mg PO DAILY RF: 0 lisinopril 40 mg tablet 40 mg PO DAILY RF: 0 Discontinued atorvastatin 20 MG tablet 20 mg PO DAILY RF: 0 metoprolol tartrate 25 mg tablet 25 mg PO BID RF: 0 No Action omeprazole 20 mg capsule,delayed release(DR/EC) 20 mg PO DAILY RF: 0 Referrals / Follow Up: Rubin Bose MD [STAFF PHYSICIAN] - Within 1 Month (cardiomyopathy) Roderick Otoole MD [STAFF PHYSICIAN] - Within 1 Month (lacunar infarct) Klever Candelaria MD [Primary Care Provider] - Within 1 Week Disposition Disposition (needs filled in before D/C Order can be placed): Home, Self Care
--- NOTE | 2021-05-15 17:01 | DS.PCM_ITS ---
Providers Date of Admission: 05/14/21 Primary Care Physician: Dr. Klever James MD Reason For Visit: CVA Diagnosis Discharge Diagnosis (1) Acute CVA (cerebrovascular accident): Status: Acute Code(s): I63.9 - Cerebral infarction, unspecified Medications at Discharge Home Medications estradiol 1 tab PO DAILY 12/06/20 hydrochlorothiazide 12.5 mg PO DAILY 05/14/21 lisinopril 40 mg PO DAILY 05/14/21 omeprazole 20 mg PO DAILY 05/14/21 aspirin 81 mg PO DAILY@0800 #0 tab 05/15/21 atorvastatin 80 mg PO QHS #30 tab 05/15/21 carvedilol 6.25 mg PO BID #60 tab 05/15/21 Hospital Course Operations None Procedures 2-D Echocardiogram Summary of Care Provided Minutes Spent on Discharge: 32 Hospital Course: 48-year-old female presents with numbness of her right hand and face. Began the day before. Still persist but no weakness noted. Patient had CAT scan that showed left basal ganglia lacunar infarct. MRI performed that showed chronic lacunar infarcts on the left basal ganglia. Echo performed showed an EF of 45 to 50% but no other acute process. Patient was evaluated by [facility] teleneurology who recommends intensive medical optimization with aspirin, high intensity statin. Patient will follow up with neurology as outpatient in regards to her overall recovery. In regards to the cardiomyopathy, patient is asymptomatic but did discuss the case with Dr. Soni who advised changing metoprolol tartrate over to carvedilol and to follow-up with cardiology as outpatient. No inpatient assessment was necessary at this time. Patient was apprised of all these information and that medication changes will be implemented. All questions were answered. Patient may return to work on the with no further restrictions. Physical Exam Const alert General Appearance: cooperative HEENT normocephalic and head/scalp atraumatic Eyes PERRL and EOMs intact bilaterally Neuro oriented x3, CN's II-XII intact bilaterally, moves all extremities, no focal motor deficits and no sensory deficits noted Sensorium / Orientation: awake and alert Motor Exam: strength 5/5 throughout Weight / BMI Weight Weight: 107.7 kg Body Mass Index (BMI) 42.0 ABG / Lab / Microbiology Data Result Diagrams: 05/14/21 17:15 05/14/21 17:15 Laboratory: Laboratory Results - last 24 hr 05/14/21 17:15: WBC 6.5, RBC 4.37, Hgb 13.1, Hct 41.7, MCV 95.4, MCH 30.0, MCHC 31.4 L, RDW Std Deviation 45.1 H, RDW Coeff of Kristi 12.8, Plt Count 320, MPV 9.6, Immature Gran % (Auto) 0.300, Neut % (Auto) 32.0 L, Lymph % (Auto) 54.4 H, [place] % (Auto) 5.1, Eos % (Auto) 7.4 H, Baso % (Auto) 0.8, Absolute Neuts (auto) 2.1, Absolute Lymphs (auto) 3.51, Nucleated RBC % 0 05/14/21 17:15: Sodium 138, Potassium 3.9, Chloride 104, Carbon Dioxide 31.0, Anion Gap 3 L, BUN 12, Creatinine 0.68, Estim Creat Clear Calc 80.06, Est GFR (MDRD) Af Amer 117, Est GFR (MDRD) Non-Af 97, BUN/Creatinine Ratio 17.7, Glucose 85, Calcium 8.8, Total Bilirubin 0.30, AST 13 L, ALT 24, Alkaline Phosphatase 80, Troponin I High Sens 33, Total Protein 7.5, Albumin 3.7, Globulin 3.8, Albumin/Globulin Ratio 1.0 05/14/21 18:15: Urine Color Yellow, Urine Clarity Clear, Urine pH 6.5, Ur Specific [place] 1.010, Urine Protein Negative, Urine Glucose (UA) Normal, Urine Ketones Negative, Urine Occult Blood Negative, Urine Nitrite Negative, Urine Bilirubin Negative, Urine Urobilinogen Normal, Ur Leukocyte Esterase Negative, Urine RBC 0 SEEN, Urine WBC 0-5 SEEN, Ur Squamous Epith Cells 5-10 SEEN, Urine Bacteria 0 SEEN, Urine Mucus 0 SEEN 05/15/21 05:24: Triglycerides 110, Cholesterol 201 H, LDL Cholesterol 130, VLDL Cholesterol 22, HDL Cholesterol 49 05/15/21 05:24: Hemoglobin A1c 5.4 Radiography Diagnostic Testing: Radiology Impression Brain CT 05/14/21 17:06 IMPRESSION: No definite acute intracranial findings. Acuity of the lacunar infarction is indeterminate. Individualized dose optimization techniques were used for this CT. at 1744 Reported and signed by: Steve Ulloa MD Electronically Signed: Steve Ulloa MD at 17:43 EDT Tel , Service support , Head/Neck CTA 05/14/21 20:06 IMPRESSION: No significant major vesselocclusive disease in the head or neck. Individualized dose optimization techniques were used for this CT. at 2120 Reported and signed by: Steve Ulloa MD Electronically Signed: Steve Ulloa MD at 21:19 EDT Tel , Service support , Brain MRI 05/15/21 00:40 IMPRESSION: 1. No evidence of acute intracranial abnormality. 2. Chronic lacunar infarcts of the left basal ganglia. 3. Paranasal sinusitis. at 1225 Reported and signed by: Cuate Roca MD Electronically Signed: Cuate Roca MD at 12:24 EDT Tel , Service support , Echocardiogram 05/15/21 00:40 Interpretation Summary The estimated ejection fraction is EF 45-50 %. Grade # I diastolic Dysfunction Mild MR Ordering Physician: Ethan Sr Referring Physician: KLEVER JAMES Performed By: Jolanta Hebert, RDCS, RVT D/C Instructions Discharge Diet: Low fat / Low cholesterol Return to work on: 05/19/21 Call your doctor if you observe: Numbness or Tingling (worsening. one-sided weakness. ) Meaningful Use Info Meaningful Use Diagnoses (Choose all that apply): Ischemic CVA CVA Therapy Assessed for PT,OT and/or ST?: Yes Ischemic Stroke Antithrombotic order at d/c?: Yes Dx of Atrial fib/flutter?: No Statins at discharge?: Yes Primary Dx Acute Ischemic CVA?: Yes IV tPA ordered during stay?: No Reason IV t-PA not ordered: Medical Contraindication Discharge Plan Admission Admit Date/Time: 05/14/21 20:10 Primary Reason for Your Visit: numbness Attending Provider: Nima Ramírez Primary Care Provider: Klever James Discharge Orders/Prescriptions Prescriptions: New atorvastatin 80 mg Tablet 80 mg PO QHS Qty: 30 RF: 0 aspirin 81 mg Tablet,Chewable 81 mg PO DAILY@0800 Qty: 0 RF: 0 carvedilol 6.25 mg tablet 6.25 mg PO BID Qty: 60 RF: 0 Continued estradiol 1 MG tablet 1 tab PO DAILY RF: 0 hydrochlorothiazide 12.5 mg capsule 12.5 mg PO DAILY RF: 0 lisinopril 40 mg tablet 40 mg PO DAILY RF: 0 Discontinued atorvastatin 20 MG tablet 20 mg PO DAILY RF: 0 metoprolol tartrate 25 mg tablet 25 mg PO BID RF: 0 No Action omeprazole 20 mg capsule,delayed release(DR/EC) 20 mg PO DAILY RF: 0 Referrals / Follow Up: Rubin Bose MD [STAFF PHYSICIAN] - Within 1 Month (cardiomyopathy) Roderick Otoole MD [STAFF PHYSICIAN] - Within 1 Month (lacunar infarct) Klever James MD [Primary Care Provider] - Within 1 Week Disposition Disposition (needs filled in before D/C Order can be placed): Home, Self Care Charges/Coding Visit Charges OBSV E&M: 08006 Observation care discharge
== END 2021-05-15 17:01 | disposition home or self-care (01) ==
LOC: ED 17:34 → PCU 21:02
PROVIDERS: Admitting Provider Hospitalist; Emergency Provider Emergency Medicine; PCP Family Medicine
DX: I63.81 Other cerebral infarction due to occlusion or stenosis of small artery (principal); R20.0 Anesthesia of skin; R20.2 Paresthesia of skin; E78.5 Hyperlipidemia, unspecified; I10 Essential (primary) hypertension; Z79.899 Other long term (current) drug therapy; R29.700 NIHSS score 0
CPT/HCPCS: 36415; 70450; 70496; 70498; 70551; 80053; 80061; 81001; 83036; 84484; 85025; 93005; 93306; 94762; 96374; 97161; 97166; 97802; 99218; 99285; Q9967; A4216; G0378

== ENCOUNTER 2022-03-08 17:40 | Emergency (ER) | payer OTHER, SELFPAY ==
[2022-03-08 17:41] VITALS: BP 159/95; PULSE 94; RESP 14; TEMP 36.6; O2SAT 98; BMI 38.0
--- NOTE | 2022-03-08 17:52 | ED.VIS.LOWEX ---
HPI History of Present Illness Chief Complaint: Lower Extremity Injury Informant: patient Occured/Mechanism Mechanism/Context: Yes blunt trauma Onset/Context/Timing Onset: Days Context: Sudden Onset Timing: Continuous Quality of Pain: Dull and Aching Current Severity: Moderate Maximum Severity: Moderate Narrative Narrative: 51-year-old female history of hypertension. She was coming down the steps running after her children on when her knee gave out and she fell on the steps injuring her right knee. No prior history of surgery to the knee. Denies hitting her head. No LOC. No hip or ankle pain. Denies other complaints. States she is able to walk on it but it is very uncomfortable. She took Tylenol several hours prior to arrival. Prior similar symptoms: No Recent Illness/Hospitalization: No PFSH PFSH Medical History Hyperlipemia Hypertension Iron deficiency Umbilical hernia without obstruction and without gangrene Home Medications estradiol 1 tab PO DAILY 12/06/20 [History Last Taken Unknown] hydrochlorothiazide 12.5 mg PO DAILY 05/14/21 [History Last Taken Unknown] lisinopril 40 mg PO DAILY 05/14/21 [History Last Taken Unknown] omeprazole 20 mg PO DAILY 05/14/21 [History Last Taken Unknown] aspirin 81 mg PO DAILY@0800 #0 tab 05/15/21 [Rx Last Taken Unknown] atorvastatin 80 mg PO QHS #30 tab 05/15/21 [Rx Last Taken Unknown] carvedilol 6.25 mg PO BID #60 tab 05/15/21 [Rx Last Taken Unknown] Allergy/AdvReac Type Severity Reaction Status Date / Time codeine Allergy Hives Verified 03/08/22 17:42 Family History Other Diabetes Hypertension Surgical History History of hysterectomy Hx of appendectomy Social History household members: spouse and children housing: house pets and animals: Yes (dog) Smoking Status: Never smoker ROS ROS ED Review of Systems ROS Unobtainable: Denies due to encephalopathy Constitutional Constitutional ED: Denies chills, fever(s) or subjective Eyes Eyes: Denies change in vision ENT ENT ED: Denies ear pain Cardiovascular Cardiovascular: Denies chest pain Respiratory/Chest Respiratory/Chest: Denies dyspnea Gastrointestinal Gastrointestinal: Denies abdominal pain Genitourinary Genitourinary ED: Denies dysuria Musculoskeletal Musculoskeletal: Denies myalgias Integumentary Denies rash Neurologic Neurologic: Denies headache(s) Psychiatric Psychiatric: Denies depression Endocrine Endocrinology: Denies polyuria Hematologic/Lymphatic Hematologic/Lymphatic: Denies easy bruising Allergic/Immunologic Allergic/Immunologic ED: Denies urticaria EXAM Physical Exam Narrative Exam Narrative: 51-year-old female no acute distress. Vital signs are stable and afebrile. H EENT exam unremarkable atraumatic nontender. C-spine nontender. Lungs are clear equal symmetrical bilaterally. Heart regular rhythm no murmur. Rate about 90. Chest nontender. Abdomen soft nontender. Back and spine nontender. Pelvic girdle intact. Moves all 4 extremities. Both upper and left lower extremity are nontender normal range of motion and strength. Right hip ankle and foot are nontender neurovascular intact. Dorsi plantarflexion is intact. Tenderness to the anterior right knee. Minimal swelling. No effusion. She is able to flex and extend the knee but flexion is somewhat limited. She can extend 180 degrees. She can lift her leg off the bed there is no signs of any quadriceps patellar tendon rupture. Neurologically she is awake and alert with no focal motor deficits. GCS of 15. Const Vital Signs: 03/08/22 17:41 Temperature 97.9 F Temperature Source Temporal Pulse Rate 94 Respiratory Rate 14 Blood Pressure 159/95 H Blood Pressure Mean 116 Pulse Ox 98 Oxygen Delivery Method Room Air Positive well nourished, well developed and obese; Negative for cachectic, contractures or unkempt General Appearance ED: well developed and NAD; Negative for unkempt, cachectic or contractures Nutritional Appearance: obese; Negative for cachectic HEENT Reports moist mucous membranes normocephalic and atraumatic; Negative for trauma or tenderness Eyes PERRL Neck full ROM and supple Thyroid: Negative for tender Chest Wall inspection of chest normal and palpation of chest normal Resp normal respiratory effort, no retractions and clear to auscultation bilaterally Auscultation: Negative for rales, rhonchi or wheezes Cardio regular rate, regular rhythm, S1 normal heart sound, S2 normal heart sound and no murmurs GI non-tender, non-distended and no masses Auscultation: normoactive bowel sounds Palpation: soft; Negative for tender or guarding Back/Spine no CVA tenderness General Back: Negative for CVA tenderness Lumbar Spine / Lower Back: Negative for lumbar spinal tenderness or straight leg raise negative bilaterally Extremity normal to inspection and full ROM Extremity Narrative: Except tenderness right knee. Limited flexion due to discomfort. Full extension. No deformity. ACL, PCL, MCL, LCL and extensor mechanism appear to be intact. General Extremety ED: Negative for cyanosis or edema General Extremity: Negative for cyanosis or edema Neuro oriented x3 and moves all extremities Sensorium / Orientation: alert, oriented to person, oriented to place and oriented to time; Negative for orientation impaired, confused, lethargic or stuporous Motor Exam: strength 5/5 throughout Psych mental status grossly normal Appearance: Negative for unkempt Mood & Affect: Negative for anxious Skin no wounds Lesions: no lesions Rashes: no rashes Trauma: Negative for abrasion or laceration MDM MDM MDM Narrative Medical decision making narrative: 51-year-old female fell on complaining of right knee pain. X-ray being obtained. Motrin for pain. Repeat exam at 6:42 PM unchanged. Discussed with patient x-ray results. Outpatient follow-up. She will be discharged home with crutches. 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 Motrin and Tylenol for pain. Ice and elevate. She and I went over limitations of plain x-rays and if this is not improving she is on follow-up with orthopedics and she knows they may have to get advanced imaging to rule out other injuries such as a meniscal tear if its not improving. Discharge Plan Triage Chief Complaint: Lower Extremity Injury ED Provider: Davonte Louise Dx/Rx/DC Orders Clinical Impression: Fall, Contusion of knee, Knee sprain Instructions: ED Knee Sprain Prescriptions: No Action estradiol 1 MG tablet 1 tab PO DAILY RF: 0 hydrochlorothiazide 12.5 mg capsule 12.5 mg PO DAILY RF: 0 omeprazole 20 mg capsule,delayed release(DR/EC) 20 mg PO DAILY RF: 0 lisinopril 40 mg tablet 40 mg PO DAILY RF: 0 atorvastatin 80 mg Tablet 80 mg PO QHS Qty: 30 RF: 0 aspirin 81 mg Tablet,Chewable 81 mg PO DAILY@0800 Qty: 0 RF: 0 carvedilol 6.25 mg tablet 6.25 mg PO BID Qty: 60 RF: 0 Primary Care Provider: Klever Candelaria Referrals: Zhang Denny MD [STAFF PHYSICIAN] - 1 Week if not improving Klever Candelaria MD [Primary Care Provider] - 1 Week if not improving Activity Restrictions/Additional Instructions: Ice and elevate your knee to decrease pain and swelling. Increase activity as tolerated. Use crutches initially until weightbearing is more tolerable Motrin for pain and swelling. Tylenol for pain. X-ray shows no broken bone or dislocation. As we discussed that does not rule out a meniscus, tendon or ligament injury. If this is not improving you need to follow-up with either your primary care physician or Dr. Zhang Denny of orthopedics for further evaluation and possible MRI if not improving. Disposition Disposition: Home, Self Care
[2022-03-08] MEDS: Ibuprofen 600 MG Tablet PO (17:59)
--- NOTE | 2022-03-08 18:03 | RAD_ITS ---
STUDY: X-RAY - RIGHT KNEE REASON FOR EXAM: Female, 51 years old. trauma TECHNIQUE: 4 view(s) of the knee. COMPARISON: None. FINDINGS: Normal visualized distal femur. Normal visualized proximal tibia and fibula. Normal proximal tibiofibular articulation. Narrowed medial femorotibial compartment. Normal lateral femorotibial compartment. Normal patellofemoral articulation. Spurring of the upper pole of the patella Mild chondrocalcinosis noted RAD/Knee 4 or More Views IMPRESSION: Degenerative osteoarthritic changes. No acute fracture. Electronically Signed: Amador Davis MD at 19:07 EDT ,
== END 2022-03-08 19:03 | disposition home or self-care (01) ==
PROVIDERS: Emergency Provider Emergency Medicine; PCP Family Medicine; Visit Provider Emergency Medicine
DX: S83.91XA Sprain of unspecified site of right knee, initial encounter (principal); W10.9XXA Fall (on) (from) unspecified stairs and steps, initial encounter; I10 Essential (primary) hypertension; E78.5 Hyperlipidemia, unspecified; E66.9 Obesity, unspecified; Z79.82 Long term (current) use of aspirin; Z79.899 Other long term (current) drug therapy
CPT/HCPCS: 73564; 99284

== ENCOUNTER → 2022-04-27 | Outpatient (CLI) | payer OTHER, SELFPAY ==
--- NOTE | 2022-04-27 07:41 | EKG12_ITS ---
Test Reason : PREOP Blood Pressure : / mmHG Vent. Rate : 071 BPM Atrial Rate : 071 BPM P-R Int : 186 ms QRS Dur : 072 ms QT Int : 390 ms P-R-T Axes : 005 018 010 degrees QTc Int : 423 ms Suspect unspecified pacemaker failure Normal sinus rhythm Normal ECG Confirmed by BE BOURNE, SHAHZAD ([id number]), photo editor BONI GARCÍA ([id number]) on 04/27/2022 2:09:07 PM Referred By: Aury Bennett Confirmed By:SHAHZAD LR MD
== END | disposition home or self-care (01) ==
LOC: PSN 07:36
PROVIDERS: PCP Family Medicine; Referring Provider Physician Assistant Surgical; Visit Provider Physician Assistant Surgical
DX: Z01.810 Encounter for preprocedural cardiovascular examination (principal); Z01.818 Encounter for other preprocedural examination
CPT/HCPCS: 93005

== ENCOUNTER → 2022-06-16 | Outpatient (CLI) | payer OTHER, SELFPAY ==
--- NOTE | 2022-06-16 07:50 | RAD_ITS ---
INDICATION: PREOP EXAMINATION/TECHNIQUE: X-RAY - XR Chest 2 Views COMPARISON: 12/06/2020. FINDINGS: Poor inspiratory effort is seen that limits evaluation. LINES/DEVICES: None. LUNGS: No consolidation, edema or effusion. No pneumothorax. Subtle linear subsegmental atelectatic streaks visualized in the lateral aspect of the left mid lung field demonstrates no change. MEDIASTINUM AND CARDIOVASCULAR STRUCTURES: Cardiac silhouette not enlarged. Mild right hilar prominence is seen that demonstrates no significant increase in comparison to the prior study. Peribronchial cuffing is seen. BONES AND SOFT TISSUES: Unremarkable. RAD/Chest PA and Lateral IMPRESSION: No radiographic evidence of acute cardiopulmonary disease. Electronically Signed: George Baron MD at 11:32 EDT ,
[2022-06-16 08:14] LABS: Absolute Lymphocyte Count 3.41 X10^3/uL (0.83-4.51); Absolute Neutrophil Count 2.1 X10^3/uL (2.0-7.7); Basophil# 0.04 X10^3/uL; Basophil% 0.6 % (0-1); Eosinophils% 4.8 % (0-5); Hematocrit 41.1 % (37-47); Hemoglobin 13.2 g/dL (12.0-15.0); Lymphocyte # 3.41 X10^3/ul (0.83-4.51); Lymphocyte % 54.8 % (19-41); Mean Corp Hgb Conc 32.1 g/dL (32-36); Mean Corpuscular Hgb 31.2 pg (27.0-32.0); Mean Corpuscular Volume 97.2 fL (81-99); Mean Platelet Vol. 9.5 fl (6.2-12.0); Monocyte% 6.4 % (0-10); NRBC Flagged by Analyzer 0 % (0-5); Neutrophil # 2.06 X10^3/uL (2.7-7.7); Neutrophil % 33.2 % (47-70); Platelet Count 411 K/mm3 (150-450); RBC Distribution Width SD 46.9 fl (35.1-43.9); Red Blood Count 4.23 M/mm3 (4.2-5.4); White Blood Count 6.2 K/mm3 (4.4-11.0)
[2022-06-16 08:50] LABS: Anion Gap 8 (5-15); BUN 10 mg/dL (7-18); BUN/Creat Ratio 13.7 RATIO (10-20); Calcium,Total 9.5 mg/dL (8.5-10.1); Chloride 104 mmol/L (98-107); Creatinine, Serum 0.73 mg/dL (0.55-1.02); EST Glomerular Filtration Rate 89 mL/min (>60); Est Glom Filt Rate - Afr Amer 107 mL/min (>60); Glucose 108 mg/dL (74-106); Potassium 3.8 mmol/L (3.5-5.1); Sodium Level 141 mmol/L (136-145)
== END | disposition home or self-care (01) ==
LOC: LAB 07:35
PROVIDERS: PCP Family Medicine; Referring Provider Physician Assistant; Visit Provider Physician Assistant
DX: Z01.818 Encounter for other preprocedural examination (principal); Z01.811 Encounter for preprocedural respiratory examination
CPT/HCPCS: 36415; 71046; 80048; 85025

== ENCOUNTER → 2022-06-29 | Outpatient (CLI) | payer OTHER, SELFPAY ==
--- NOTE | 2022-06-29 15:22 | VDLE_ITS ---
Reason For Study: Meniscus tear RIGHT GSV is normal. CFV is compressible, spontaneous, phasic, competent and demonstrates normal augmentation. FV is compressible, spontaneous, phasic, competent and demonstrates normal augmentation. POP V is compressible, spontaneous, phasic, competent and demonstrates normal augmentation. T/P Trunk is compressible. PTV is compressible. RT PerV is compressible. Procedure This is a venous duplex using B-mode, color flow and spectral Doppler. Exam performed in department. A preliminary report was called and/or faxed to [facility]. VL/Venous Duplex US, Unilateral Interpretation Summary There is no evidence of right lower extremity deep vein thrombosis. Right great saphenous vein appears patent and compressible segmentally. Ordering Physician: Malcolm Vincent Referring Physician: Klever Candelaria Performed By: Kaity Goodwin RVT
== END | disposition home or self-care (01) ==
LOC: CVS 15:19
PROVIDERS: PCP Family Medicine; Referring Provider Orthopaedic Surgery; Visit Provider Orthopaedic Surgery
DX: S83.241A Other tear of medial meniscus, current injury, right knee, initial encounter (principal)
CPT/HCPCS: 93971

== ENCOUNTER → 2022-07-10 | Outpatient (CLI) | payer OTHER, SELFPAY ==
--- NOTE | 2022-07-10 11:11 | VDLE_ITS ---
Reason For Study: LEG PAIN AND SWELLING RIGHT LEFT GSV is normal. CFV is compressible, spontaneous, phasic, CFV is compressible, spontaneous, phasic, competent, and demonstrates normal competent and demonstrates normal augmentation. augmentation. FV is compressible, spontaneous, phasic, competent and demonstrates normal augmentation. POP V is compressible, spontaneous, phasic, competent and demonstrates normal augmentation. T/P Trunk is compressible. PTV is compressible. RT PerV is compressible. Procedure This is a venous duplex using B-mode, color flow and spectral Doppler. Exam performed in department. The exam was diagnostic. A preliminary report was called and/or faxed to Vadim Santa PA-C. VL/Venous Duplex US, Unilateral Interpretation Summary There is no evidence of right lower extremity deep vein thrombosis. Right great saphenous vein appears patent and compressible segmentally. Normal flow patterns left common f emoral vein Ordering Physician: Vadim Santa Referring Physician: Vadim Santa Performed By: Delon Jain RVT
== END | disposition home or self-care (01) ==
LOC: CVS 11:09
PROVIDERS: PCP Family Medicine; Referring Provider Physician Assistant; Visit Provider Physician Assistant
DX: M79.661 Pain in right lower leg (principal); M79.89 Other specified soft tissue disorders
CPT/HCPCS: 93971